=== PATIENT | male | born 1950 | race Hispanic/Latino ===

== ENCOUNTER 2022-12-03 19:29 | Inpatient (IN) | payer MEDICARE ==
[~2022-12-03] VITALS: Ht 170.2 cm; Wt 92.1 kg
[~2022-12-03 19:29] MED LIST: ACET-685 PO; ATOR10TA PO; DOXY100C5 PO; GLIM2TAB7 PO; GLYB5TAB3 PO; INSU100V SQ; INSU100V8 SQ; LEVO100T5 PO; LISI10TA20 PO; METF10007 PO; VANC1.5V3 IV
[2022-12-03 19:45] VITALS: BP 182/85; PULSE 105; RESP 20; TEMP 99.8; O2SAT 90
[2022-12-03] MEDS ORDERED: TORADOL IM STA (20:08)
[2022-12-03] MEDS ORDERED: TORADOL ONE (20:20)
--- NOTE | 2022-12-03 20:26 | ER.PDOC ---
General Chief Complaint: Trunk Pain/Injury Stated Complaint: POSSIBLE BROKE RIBS Time seen by MD: 20:22 Source: patient Exam Limitations: no limitations History of Present Illness Initial Comments Left-side rib fractures status post fall 6 days ago. Patient was admitted at [facility] but signed and left AGAINST MEDICAL ADVICE today because he was not happy with the nursing care. He is here because of pain. No cough. No fever or chills. Where: home Context: fall Location of pain/injury: chest Quality/Severity: severe Remembers: injury, coming to hospital Allergies: Coded Allergies: No Known Allergies (Unverified , 04/22/14) Home Meds Active Scripts Doxycycline Hyclate (DOXYCYCLINE HYCLATE) 100 Mg Capsule, 100 MG PO BID for 42 Days Prov:JULI OSEI MD 06/27/19 Acetaminophen With Codeine (TYLENOL WITH CODEINE #3 TABLET) 1 Each Tablet, 2 EACH PO Q6 PRN for PAIN, #30 Prov:JULI OSEI MD 06/27/19 Insulin Lispro (HUMALOG) 100 Unit/1 Ml Vial, 0 UNIT SQ ACHS for 30 Days, VIAL Prov:JULI OSEI MD 06/27/19 Insulin Glargine,Hum.rec.anlog (LANTUS) 100 Unit/1 Ml Vial, 10 UNIT SQ DAILY for 30 Days, VIAL Prov:JULI OSEI MD 06/27/19 Glyburide (GLYBURIDE) 5 Mg Tablet, 5 MG PO BIDAC for 30 Days, TAB Prov:JULI OSEI MD 06/27/19 Lisinopril (LISINOPRIL) 10 Mg Tablet, 10 MG PO DAILY for 30 Days, TAB Prov:JULI OSEI MD 06/27/19 Vancomycin HCl in Water (Vancomycin 1,500 mg/15Ml-Water) 1.5 Gram/15 Ml (100 Mg/Ml) Vial, 1.5 GM IV BID for 42 Days Prov:JULI OSEI MD 06/27/19 Reported Medications Levothyroxine Sodium (LEVOTHYROXINE SODIUM) 100 Mcg Tablet, 1 TAB PO DAILY, #30 TAB 5 Refills 04/22/14 Metformin Hcl (METFORMIN HCL) 1,000 Mg Tablet, 1 TAB PO DAILY, #60 TAB 5 Refills 04/22/14 Atorvastatin 10MG (LIPITOR 10MG) 10 Mg Tablet, 1 TAB PO HS, #90 TAB 1 Refill 04/22/14 Past Medical History Medical History: diabetes Family History Significant Family History: no pertinent family hx Social History Smoking: non-smoker Alcohol Use: none Drug Use: none Review of Systems Constitutional: no symptoms reported Respiratory: no symptoms reported Cardiovascular: see HPI Gastrointestinal: no symptoms reported Genitourinary: no symptoms reported Musculoskeletal: no symptoms reported All Other Systems: Reviewed and Negative Physical Exam General Appearance: No Apparent Distress, WD/WN Head: No Evidence of Injury Neck: Non-Tender Respiratory: normal breath sounds, no respiratory distress, chest non-tender, tenderness (Left chest wall) Cardiovascular/Chest: Normal Peripheral Pulses, Regular Rate, Rhythm, No Edema, No Gallop, No JVD, No Murmur, Tachycardia Gastrointestinal: Normal Bowel Sounds, No Organomegaly, No Pulsatile Mass, Non Tender, Soft Back: Normal Inspection, No CVA Tenderness, No Vertebral Tenderness Extremities: No Evidence of Injury, Normal Range of Motion, Non-Tender, No Pedal Edema Neurologic/Psychiatric: zipper setter chainstitch II-XII NML as Tested, No Motor/Sensory Deficits, Alert, Normal Mood/Affect, Oriented x 3 [place] Coma Score Best Eye Response: (4) Open Spontaneously Best Verbal Response: (5) Oriented Best Motor Response: (6) Obeys Commands Results/Orders Results/Orders Orders - SINDHU SMITH MD Xr Chest 1v (12/03/22 20:00) Ketorolac Tromethamine (Toradol) (12/03/22 20:08) Ketorolac Tromethamine (Toradol) (12/03/22 20:20) Cbc With Auto Diff (12/03/22 20:35) Comprehensive Metabolic Panel (12/03/22 20:35) PT (12/03/22 20:35) Partial Thromboplastin Time. (12/03/22 20:35) Lactic Acid(Ml) (12/03/22 20:35) Procalcitonin (12/03/22 20:35) Ct Chest Wo Iv Contrast (12/03/22 20:35) Arterial Blood Gas (12/03/22 20:35) Vital Signs Date Time Temp Pulse Resp B/P (MAP) Pulse Ox O2 Delivery O2 Flow Rate FiO2 12/03/22 21:45 84 20 141/69 (93) 96 Nasal Cannula* 2 28 12/03/22 21:09 20 94 Nasal Cannula* 2 28 12/03/22 20:45 85 20 166/74 (104) 92 Room Air* 0 21 12/03/22 19:45 99.8 105 20 90 12/03/22 19:45 99.8 105 20 12/03/22 19:45 99.8 105 20 182/85 (117) 90 Room Air* 0 21 Administered Medications Medications (Trade) Dose Ordered Sig/Patsy Route PRN Reason Start Time Stop Time Status Last Admin Dose Admin Ketorolac Tromethamine (Toradol) 30 mg STAT STAT IM 12/03/22 20:08 12/03/22 20:09 DC 12/03/22 20:27 30 MG Laboratory Tests Test 12/03/22 20:44 12/03/22 20:57 White Blood Count 4.5 10^3/uL (4.5-11.0) Red Blood Count 3.69 10^6/uL (4.50-5.90) L Hemoglobin 12.4 g/dL (13.9-16.3) L Hematocrit 35.9 % (37.0-53.0) L Mean Corpuscular Volume 97.3 fL (78-100) Mean Corpuscular Hemoglobin 33.6 pg (26-34) Mean Corpuscular Hemoglobin Concent 34.5 g/dL (33-36.5) Red Cell Distribution Width 12.7 % (11.5-14.5) Platelet Count 171 10^3/uL (150-400) Mean Platelet Volume 10.3 fL (7.8-11.0) Neutrophils (%) (Auto) 81.0 % (41.0-85.0) Lymphocytes (%) (Auto) 8.4 % (24.0-44.0) L Monocytes (%) (Auto) 9.5 % (5.0-12.0) Neutrophils # (Auto) 3.7 10^3/uL (1.8-7.7) Lymphocytes # (Auto) 0.38 10^3/uL1 (1.0-4.8) L Monocytes # (Auto) 0.4 10^3/uL (0.3-0.8) Absolute Immature Granulocyte (auto 0 10^3 u/L (0-2) Absolute Eosinophils (auto) 0.0 10^3/uL (0.0-0.2) Immature Granulocytes % 0.00 % (0.00-0.50) Eosinophils % 0.7 % (0.0-5.0) Basophils % 0.4 % (0.0-0.2) H Basophils # 0.0 10^3/uL (0.0-0.1) Prothrombin Time 9.8 SEC (9.7-11.6) INR 0.9 Activated Partial Thromboplast Time 27.0 SEC (22.5-33.1) Sodium Level 133 mmol/L (132-145) Potassium Level 4.3 mmol/L (3.6-5.2) Chloride Level 97.0 mmol/L (96-109) Carbon Dioxide Level 30.5 mmol/L (20.0-32) Anion Gap 9.8 Blood Urea Nitrogen 14 mg/dL (7-18) Creatinine 0.94 mg/dL (0.59-1.40) Estimated GFR () 96.0 (>/=60) Est GFR (CKD-EPI)(Non-Afr Afghan) 79.3 (>/=60) BUN/Creatinine Ratio 14.0 (10.0-20.0) Glucose Level 314 mg/dL (74-106) H Lactic Acid Level 1.0 mmol/L (0.5-1.9) Calcium Level 8.4 mg/dL (8.4-10.5) Total Bilirubin 0.8 mg/dL (0.2-1.0) Aspartate Amino Transferase (AST) 31 U/L (0-35) Alanine Aminotransferase (ALT) 50 U/L (12-78) Alkaline Phosphatase 91 U/L (50-136) Total Protein 6.7 g/dL (6.4-8.2) Albumin 3.3 g/dL (3.4-5.0) L Globulin 3.4 Albumin/Globulin Ratio 0.970 Procalcitonin 0.06 ng/mL (0.05-0.5) Blood Gas Sample Site RT RADIAL ARTERY Blood pH 7.481 (7.350-7.450) Blood Gas PCO2 32.3 mmHg (35.0-45.0) L Blood Gas PO2 54.6 mmHg (80.0-100.0) L Blood Gas HCO3 23.6 mmol/L (22.0-26.0) Blood Gas Base Excess 0.7 mmol/L (-2.0-2.0) Avi Test POSITIVE Arterial Blood Oxygen Saturation 88.5 % (94.0-97.00) L Deoxyhemoglobin 11.2 % (0.0-5.0) H Carboxyhemoglobin 1.7 % (0.0-3.9) Methemoglobin 0.5 % (0.00-5.0) Total Hemoglobin 12.7 % (12.0-17.8) Total Oxygen Concentration 15.5 % (13.5-17.5) Oxygen Delivery Method ROOM AIR FiO2 21 % (20-101) Total Carbon Dioxide 24.6 mmol/L (23-27) Progress Progress CT chest: Multiple posterior left rib fractures. No clear pneumothorax. 2. Small left and trace right pleural effusion with partial atelectasis of the left lower lobe and subsegmental atelectatic changes in the right lung. 3. Cholelithiasis. Pro-Kevyn 0.06, lactate 1.0, glucose 342, rest of chemistry is normal, CBC is unremarkable. ABG: pH 7.48, PCO2 32.3, PO2 54.6 giving oxygen saturation of 88.5 on FiO2 of 21. Patient received Toradol, Solu-Medrol and a breathing treatment I consulted Dr. Ho and he is agreeable for patient to be admitted ER DEPART Departure Time of Disposition: 21:59 Disposition: 09 ADMITTED INPATIENT Impression: Primary Impression: Acute respiratory failure with hypoxia Additional Impression: Multiple fractures of ribs of left side Qualified Codes: S22.42XA - Multiple fractures of ribs, left side, initial encounter for closed fracture Condition: Improved Referrals: MARIO ALBERTO ALCANTARA MD (PCP) PRIMARY CARE PROVIDER Comments Admitted to Dr. Ramirez Duration or Time Spent with Pa: 60 min Critical Care Note Total Time (mins): 60 SINDHU SMITH MD Dec 03, 2022 20:26
--- NOTE | 2022-12-03 20:28 | DIREP ---
PROCEDURE:CHEST 1 VIEW COMPARISON:[facility], CR, XRAY CHEST SINGLE VW, 06/27/2019, 10:48 AM. INDICATIONS:Pain S/P fracture of left ribs FINDINGS: LUNGS/PLEURA:Low lung volumes is strandy bibasilar subsegmental atelectatic changes, greater at the left lung base. VASCULATURE:Unremarkable. CARDIAC:Mildly enlarged cardiomediastinal silhouette. MEDIASTINUM:Unremarkable. BONES:Degenerative changes in the AC joints. Limited evaluation of the ribs due to overlapping structures and technique. OTHER:Negative. CONCLUSION: 1. Low lung volumes and bibasilar subsegmental atelectatic changes, with more confluent opacity at the left lung base. Difficult to exclude underlying pneumonia. 2. Limited evaluation of the ribs. Dictated by: Agustín Oconnell MD. On 12/03/2022 at 08:25 PM
[2022-12-03 20:45] VITALS: BP 166/74; PULSE 85; RESP 20; O2SAT 92
[2022-12-03 20:58] LABS: BASOPHIL % 0.4 % (0.0-0.2); EOSINOPHIL % 0.7 % (0.0-5.0); LYMPHOCYTES # 0.38 10^3/uL1 (1.0-4.8); LYMPHOCYTES % 8.4 % (24.0-44.0); MEAN CORP HGB 33.6 pg (26-34); MONOCYTES # 0.4 10^3/uL (0.3-0.8); MONOCYTES % 9.5 % (5.0-12.0); NEUTROPHIL # 3.7 10^3/uL (1.8-7.7); PLATELET COUNT 171 10^3/uL (150-400); RED CELL DISTRIBUTION WIDTH 12.7 % (11.5-14.5)
[2022-12-03 21:08] LABS: ABG PCO2 32.3 mmHg (35.0-45.0); ABG PH 7.481 (7.350-7.450); BE(B) 0.7 mmol/L (-2.0-2.0); HCO3act 23.6 mmol/L (22.0-26.0); pO2 54.6 mmHg (80.0-100.0)
[2022-12-03 21:09] VITALS: RESP 20; O2SAT 94
--- NOTE | 2022-12-03 21:09 | NUR ---
O2 ABG READING 88% ON RA PER CAREN RT. PATIENT CURRENTLY SATING 86% RA VIA PULSE OXIMETRY - O2 APPLIED AT 2 LPM VIA NC O2 95% - NOTIFIED EDP DR SMITH
[2022-12-03 21:18] LABS: CARBON DIOXIDE 30.5 mmol/L (20.0-32)
--- NOTE | 2022-12-03 21:43 | DIREP ---
PROCEDURE:CT CHEST W/O COMPARISON:[facility], CR, XRAY CHEST SINGLE VW, 06/27/2019, 10:48 AM. INDICATIONS:Left rib pain S/P fall 6 days ago TECHNIQUE:Helical sections through the chest were performed from the lung apices through the diaphragms without IV contrast. Sagittal and coronal reconstructions are obtained from source images. FINDINGS: LUNGS AND PLEURAL SPACES:Trace right and small left pleural effusion with adjacent atelectatic changes. No pneumothorax. CARDIAC:The heart is not enlarged. No pericardial effusion. MEDIASTINUM:Unremarkable. MARK:Unremarkable. AORTA:Minimal calcific atheromatous plaque. No aortic dilation. CHEST WALL:Normal. No mass or axillary adenopathy. LIMITED ABDOMEN:Normal. Limited images of the upper abdomen are unremarkable. BONES:Mildly displaced left posterior 4th, 5th, 6th, 7th rib fracture. Multilevel degenerative changes of the thoracic spine without an acute fracture or subluxation. OTHER:Mildly left elevated hemidiaphragm. Innumerable gallstones in the partially visualized gallbladder. CONCLUSION: 1. Multiple posterior left rib fractures. No clear pneumothorax. 2. Small left and trace right pleural effusion with partial atelectasis of the left lower lobe and subsegmental atelectatic changes in the right lung. 3. Cholelithiasis. Dictated by: Agustín Oconnell MD. On 12/03/2022 at 09:37 PM
[2022-12-03 21:45] VITALS: BP 141/69; PULSE 84; RESP 20; O2SAT 96
[2022-12-03] MEDS ORDERED: DUO 0.5-3(2.5) MG/3 ML IH ONE (21:59)
[2022-12-03] MEDS ORDERED: DECADRON ONE (21:59)
[2022-12-03 22:00] VITALS: PULSE 84; PULSE 87; RESP 20; O2SAT 95
[2022-12-03] MEDS ORDERED: DUO 0.5-3(2.5) MG/3 ML IH STA (22:01)
[2022-12-03] MEDS ORDERED: DECADRON IH STA (22:01)
[2022-12-03] MEDS ORDERED: SOLU-MEDROL IV STA (22:01)
[2022-12-03] MEDS ORDERED: PIOG15TA66 PO (22:04)
[2022-12-03] MEDS ORDERED: DECADRON IH ONE (22:04)
[2022-12-03] MEDS ORDERED: GLYB5TAB3 PO (22:04)
[2022-12-03] MEDS ORDERED: SOLU-MEDROL ONE (22:08)
[2022-12-04] VITALS (14 sets, daily range): BP systolic 150–170; BP diastolic 63–74; PULSE 75–95; RESP 18–20; TEMP 97.5–98.3; O2SAT 90–96
--- NOTE | 2022-12-04 | NUR ---
BEDSIDE REPORT RECEIVED FROM ASTIRD MADRID AT THIS TIME.
--- NOTE | 2022-12-04 03:57 | PRM.CONS ---
Consultation History of Present Illness History of Patient Comments I saw patient on December 03, 2022. Patient is a 72-year-old male that presents to the emergency department because of left-sided flank pain. Symptoms started 6 days ago at home. Patient states that he picked up laundry and fell backwards landing directly on the left flank. Patient was transferred to a hospital in [facility] because of multiple fractures of the left side of his ribs. States that he was treated rudely and requested discharge, AMA. Patient re- presents to this facility because of worsening left flank pain provoked by breathing. In the emergency room patient was found to be hypoxic. There is concern that patient was not inhaling deeply. CT angios of the chest shows no PE or pulmonary contusion. No pneumothorax. I saw patient the bedside. Stable on 2 L nasal cannula. I saw patient at 12/03/2022. VTE VTE Risk Total Score: 2 VTE Risk Score VTE Risk: Score 0-1 = Low Risk (Aggressive mobilization; early ambulation; no VTE prophylaxis required) Score 2: Moderate Risk (Intermittent/Pneumatic Compression Device OR Lovenox/Heparin/Coumadin) Score 3-4: High Risk (Intermittent/Pneumatic Compression Device AND Lovenox/Heparin/Coumadin) Score > or =5: Highest Risk (Intermittent/Pneumatic Compression Device AND Lovenox/Heparin/Coumadin) Antico:Hep/LMWH/Coum/Xarelto: No Mechanical device ordered: No VTE VTE Present on Admission: No Currently receiving anticoagul: No VTE Risk Total Score: 2 Antico:Hep/LMWH/Coum/Xarelto: No Mechanical device ordered: No VTE VTE Risk Total Score: 2 On anticoag and warfarin: No SANDHYA SAUL MD Dec 04, 2022 03:57
[2022-12-04] MEDS ORDERED: TYLENOL PO PRN (04:00)
[2022-12-04] MEDS ORDERED: VENTOLIN INH PRN (04:00)
[2022-12-04] MEDS ORDERED: DEXTROSE 50%-WATER SYRINGE IV PRN (04:30)
[2022-12-04] MEDS ORDERED: SOLU-MEDROL IV SCH (06:00)
--- NOTE | 2022-12-04 06:40 | NUR ---
BEDSIDE REPORT RECEIVED BEDSIDE REPORT FROM [facility].
[2022-12-04] MEDS: HUMULIN R SQ SCH ×4 (07:28→20:40)
[2022-12-04] MEDS: ASPIRIN EC PO SCH (08:38)
[2022-12-04] MEDS: LOVENOX SQ SCH (08:38)
[2022-12-04] MEDS ORDERED: SYNTHROID PO SCH (09:00)
[2022-12-04] MEDS ORDERED: PROTONIX PO SCH (09:30)
[2022-12-04] MEDS ORDERED: TYLENOL PO SCH (09:30)
[2022-12-04] MEDS ORDERED: TYLENOL PO ONE (09:34)
[2022-12-04] MEDS: DUO 0.5-3(2.5) MG/3 ML IH SCH ×3 (10:06→20:47)
--- NOTE | 2022-12-04 11:41 | PCM.HP ---
History of Present Illness Reason for Visit: Left-sided back pain and chest pain. History of Present Illness 72-year-old maleWith past medical history of diabetes mellitus, hypothyroidism, hypertension, among others that presents to the emergency department because of left-sided flank pain. Symptoms started 6 days ago at home. Patient states that he picked up laundry and fell backwards landing directly on the left flank. Patient was transferred to a hospital in [facility] because of multiple fractures of the left side of his ribs. States that he was treated rudely and requested discharge, AMA. Patient re-presents to this facility because of worsening left flank pain provoked by breathing. In the emergency room patient was found to be hypoxic. There is concern that patient was not inhaling deeply. CT angios of the chest shows no PE or pulmonary contusion. No pneumothorax.. Patient was found to have 4 rib fractures. Patient was found to be hypoxic. Placed on supplemental oxygen. Patient is being admitted hospital for further management... Past Medical History Cardiac: HTN Endocrine: Diabetes, Hypothyroidism Past Surgical History: No pertinent hx Past Social History Smoke: No Alcohol: none Drugs: None Travel Hx EBOLA RISK:Travel to/contact w: No Review of Systems Respiratory: Shortness of breath Cardiovascular: Chest Pain Gastrointestinal: No: Nausea Musculoskeletal: foot pain Neurological: Weakness Allergies: Coded Allergies: No Known Allergies (Unverified , 04/22/14) Scheduled Glyburide (Glyburide), 5 MG PO DAILY24 Levothyroxine Sodium (Levothyroxine Sodium), 1 TAB PO DAILY, (Reported) Metformin Hcl (Metformin Hcl), 1 TAB PO DAILY, (Reported) Pioglitazone Hcl (Pioglitazone Hcl), 1 TAB PO DAILY24, (Reported) Discontinued Medications Acetaminophen With Codeine (Tylenol With Codeine #3 Tablet), 2 EACH PO Q6 PRN for PAIN Discontinued Reason: No Longer Taking Atorvastatin 10MG (Lipitor 10MG), 1 TAB PO HS, (Reported) Discontinued Reason: No Longer Taking Doxycycline Hyclate (Doxycycline Hyclate), 100 MG PO BID Discontinued Reason: No Longer Taking Insulin Glargine,Hum.rec.anlog (Lantus), 10 UNIT SQ DAILY Discontinued Reason: No Longer Taking Insulin Lispro (Humalog), 0 UNIT SQ ACHS Discontinued Reason: No Longer Taking Lisinopril (Lisinopril), 10 MG PO DAILY Discontinued Reason: HOLD Vancomycin HCl in Water (Vancomycin 1,500 mg/15Ml-Water), 1.5 GM IV BID Discontinued Reason: No Longer Taking Exam Vital Signs Vital Signs Date Time Temp Pulse Resp B/P (MAP) Pulse Ox O2 Delivery O2 Flow Rate FiO2 12/04/22 10:08 78 18 92 Nasal Cannula* 3 32 12/04/22 07:00 97.7 155/71 (99) General Appearance: Alert, Oriented X3, moderate distress HEENT: Atraumatic, PERRLA Respiratory: Clear to auscultation, Other (Diminished air entry. Basis. Chest wall tenderness) Cardiovascular: Regular rate, Normal S1, Normal S2 Abdominal: Normal bowel sounds, Soft, No tenderness Extremities: No clubbing, No cyanosis, Other (Chest wall tenderness) Skin: No lesions Neuro: Normal speech, Normal tone Psych/Mental Status: Mood NL Assessment/Plan Assessment/Plan Assessment/Plan 72-year-old maleWith past medical history of diabetes mellitus, hypothyroidism, hypertension, among others that presents to the emergency department because of left-sided flank pain. Symptoms started 6 days ago at home. Patient states that he picked up laundry and fell backwards landing directly on the left flank. Patient was transferred to a hospital in [facility] because of multiple fractures of the left side of his ribs. States that he was treated rudely and requested discharge, AMA. Patient re-presents to this facility because of worsening left flank pain provoked by breathing. In the emergency room patient was found to be hypoxic. There is concern that patient was not inhaling deeply. CT angios of the chest shows no PE or pulmonary contusion. No pneumothorax.. Patient was found to have 4 rib fractures. Patient was found to be hypoxic. Placed on supplemental oxygen. Patient is being admitted hospital for further management... Plan Admit Oxygen keep saturation more than 92% Incentive spirometer Surgeon consulted for evaluation and recommendation Pain management with close monitoring of vital signs and pulse ox Bronchodilators as needed SSI Reconcile home med DVT prophylaxis as appropriate Expect length of stay more than 1 midnight Time spent examining the patient, reviewing labs, images, discussing the case with patient, surgeon, RN, documentation and placing orders more than 75 Problems: (1) Acute respiratory failure with hypoxia ICD Code: J96.01 - Acute respiratory failure with hypoxia SNOMED: 01848977, 074212522 (2) Atelectasis ICD Code: J98.11 - Atelectasis SNOMED: 29266191 (3) Multiple fractures of ribs ICD Code: S22.49XA - Multiple fractures of ribs, unspecified side, initial encounter for closed fracture SNOMED: 6238513 (4) Hypertension ICD Code: I10 - Essential (primary) hypertension SNOMED: 07056924 (5) Diabetes mellitus ICD Code: E11.9 - Type 2 diabetes mellitus without complications SNOMED: 74233802 Patient History: Diabetes mellitus G8 BROTHER G8 SISTER G8 SISTER KEVIN NELSON MD Dec 04, 2022 11:41
--- NOTE | 2022-12-04 11:48 | NUR ---
DECLINED TO BE NOTIFIED OF LAB RESULTS FOR GLUCOSE.
--- NOTE | 2022-12-04 11:55 | NUR ---
CM, DISCHARGE CM VISITED WITH PATIENT REGARDING DISCHARGE PLAN AND NEED, PATIENT LIVES AT HOME ALONE. VERIFIED PATIENT LIVES IN [facility]. IS INDEPENDENT WITH ADLS/CARE. EDUCATED ON HOME HEALTH SERVICES, PATIENT DENIES NEED. GOLA IS TO RETURN HOME ALONE FOR ROUTINE SELF CARE. CM WILL CONTINUE TO FOLLOW FOR DISCHARGE NEEDS.
[2022-12-04 12:11] LABS: LYMPHOCYTES # 0.14 10^3/uL1 (1.0-4.8); LYMPHOCYTES % 2.3 % (24.0-44.0); MEAN CORP HGB 32.9 pg (26-34); MONOCYTES # 0.1 10^3/uL (0.3-0.8); MONOCYTES % 1.8 % (5.0-12.0); NEUTROPHIL # 5.9 10^3/uL (1.8-7.7); NEUTROPHILS % 95.9 % (41.0-85.0); RED CELL DISTRIBUTION WIDTH 12.1 % (11.5-14.5)
[2022-12-04] MEDS: LANTUS SQ SCH (12:38)
[2022-12-04] MEDS: TYLENOL PO SCH ×3 (14:00→21:23)
[2022-12-04] MEDS: MOTRIN PO SCH ×3 (14:02→21:00)
[2022-12-04] MEDS: MORPHINE SULFATE IV PRN (14:21)
[2022-12-04] MEDS ORDERED: MORPHINE SULFATE ONE (14:21)
--- NOTE | 2022-12-04 14:28 | NUR ---
RT TO INSTRUCT PAT ON DIAPHRAMATIC BREATHING TO AID IN DEEP BREATHING SINCE FRACTURING HIS RIBS; PAT RESPONSIVE AND DEMONSTRATED BREATHING POST INSTRUCTION; PAT ALSO ABLE TO DO INCENTIVE SPIROMETRY WELL - ABLE TO ACHIEVE 2500ML WITH GOOD FORM
[2022-12-04] MEDS ORDERED: SENSORCAINE-MPF 0.25% VIAL ONE (14:39)
[2022-12-04] MEDS ORDERED: EXPAREL 266 MG/20 ML VIAL IJ ONE (14:39)
[2022-12-04] MEDS ORDERED: HUMALOG SQ ONE ×2 (15:00→16:00)
--- NOTE | 2022-12-04 15:17 | PRM.OPH ---
Lumbar Interclaminar ROWAN Note Pre-Operative DX: fall/ rib pain Post-OP DX: same Actual Procedure Performed: ignacio nerve block Indications: Patient is admitted recently seeking a thoracic IGNACIO injection in hopes of therapeutic benefit. The risks, alternatives, and complications including but not limited to bleeding, bruising, infection, failure to relieve pain, increase in pain, nerve injury, and allergic reaction were explained to the patient. The record of the patients past medical, surgical, current medications, allergies, and review of systems, family and social histories, as well as pain assessment have been obtained. DATE: Dec 04, 2022 Start Time of Procedure: 15:00 Procedure Finish Time: 15:12 Referring PCP: Aneudy Ho Descriptor of Procedure The patient was interviewed, questions were addressed, informed consent was obtained and the patient was placed in a seated position in his bedside chair. Vitals verified and documented by nurse. A Chloraprep prep was used for clensing. Sterile technique was maintained at all times. 15ml exparel mixed with 0.25% bupivacaine was injected in 5ml increments under direct ultrasonography. The patient tolerated the procedure well and remained stable througout Assessment & Plan The patient was monitored post-procedure pain levels improving [2 /10]. The patient denies any sensory or motor deficits. No anesthetic complications were noted. The therapeutic effects of the local are expected to have onset one to three days post procedure. Discharge instructions were provided. Follow-up Appt KATARINA HEWITT CRNA Dec 04, 2022 15:17
--- NOTE | 2022-12-04 15:48 | NUR ---
GLUCOSE DR. NELSON NOTIFIED OF FSBS OF 476. RECEIVED ORDERS FOR OT DOSE OF HUMALOG, AND NS BOLUS, SEE EMR. ALSO RECEIVED ORDERS TO RECHECK FSBS 2 HOURS AFTER HUMALOG HAS BEEN ADMINISTERED, NO NEED FOR LAB DRAW. Addendum: 12/04/22 at 1604 by GARCIA Rahman RN Amended: Links added.
[2022-12-04] MEDS ORDERED: NS 500ML 500 ML IV ONE (15:53)
[2022-12-04] MEDS ORDERED: NS 500ML IV ONE (16:00)
--- NOTE | 2022-12-04 16:44 | NUR ---
NOTIFIED DR BROWN OF BP 170/74, RECEIVED NO NEW ORDERS
--- NOTE | 2022-12-04 22:59 | CNH ---
DICTATOR NAME: Telly HoDO CHIEF COMPLAINT: Rib fractures. HISTORY OF PRESENT ILLNESS: This is a 72-year-old male who apparently came home from work on Thursday, 5 days ago. He reports to me that he bent over to potato picker some laundry and fell and injured himself. He was unsure if his blood sugar was low at that time or if it was related to dehydration from working. He apparently ended up having multiple rib fractures and went to a facility out of our community where he was treated as an inpatient, but there were some problems with his care and he left AMA. He presented earlier last night with back pain and shortness of breath. He is more than 5 days from his injury. At the time of my assessment in his room this morning, he is alert, pleasant, and oriented. He reports he does have mid back pain. He is very pleasant and cooperative. I have discussed with him the findings of a CT scan and the importance of utilizing his incentive spirometer to prevent further worsening of his pulmonary status and also to help improve his atelectasis and decrease his risk for further pneumonia. The patient is very pleasant with my evaluation. He expresses understanding regarding the descriptions I gave him. PAST MEDICAL HISTORY: Includes diabetes and hypertension. Previously had hepatitis C, for which he was treated. His oral mucous membranes are pink and moist. PAST SURGICAL HISTORY: Includes a hernia repair. ALLERGIES: No known drug allergies. HOME MEDICATIONS: Per list. INPATIENT MEDICATIONS: Per JUL. Of note, his PCP is reported to be Ingrid Umana. SOCIAL HISTORY: He denies tobacco. He reports he has an alcohol for more than 36 years. He denies illicit drug use. OCCUPATION: The patient works as a welder/installer and knows he has had significant occupational exposures for the last 50 years. FAMILY HISTORY: Essentially noncontributory to this evaluation. REVIEW OF SYSTEMS. CONSTITUTIONAL: No fever, chills or weakness. ENDOCRINE: He has known diabetes. He does not report thyroid disease to me. CARDIOVASCULAR: No chest pain. He does have some trouble breathing associated with rib fractures. PULMONARY: Again, changes consistent with rib fractures, he does not report a cough. ABDOMEN: No nausea, vomiting, abdominal pain. MUSCULOSKELETAL: He has pain associated with rib fractures. NEUROLOGIC: He has no recent reported symptoms. PHYSICAL EXAMINATION: GENERAL: This is an alert, oriented, appropriate 72-year-old male in no acute distress at the time of my assessment. VITAL SIGNS: His last recorded vital signs show temperature 97.7, pulse 75, respiratory rate of 18, blood pressure 155/71. HEENT: Normocephalic, atraumatic. He has some scleral icterus. NECK: Supple and soft. Trachea is midline. He has no JVD. HEART: Has a regular rate and rhythm. LUNGS: Clear to auscultation anteriorly and both the bases laterally. ABDOMEN: The bowel sounds are positive and soft. He has no tenderness on exam. EXTREMITIES: Show positive radial pulses bilaterally, positive dorsal pedal pulse bilaterally. NEUROLOGIC: He has no focal findings. Cranial nerves 2-12 are grossly intact. LABORATORY STUDIES: On admission, his white count is 4.5, hemoglobin 12.4, platelet count 171. He had a blood gas last night that showed pH 7.48, pCO2 of 32.3. His pO2 is 54.6. Chemistry showed BUN 14, creatinine 0.9, total bilirubin 0.8. AST, ALT are within normal limits. His albumin is low at 3.3. His coagulation studies are normal. He has had a chest x-ray that did not have any significant findings. Chest CT shows rib fractures on the left with associated atelectasis and possible early consolidation. SURGICAL ASSESSMENTS: * Left-sided rib fractures as described in the CT report. * History of fall more than 48 hours past injury. * History of diabetes. * History of hypertension. * Sequela of rib fractures. PLAN: The patient was seen and examined. The chart was reviewed. I have explained to the patient the importance of us optimizing his pain management, so he can utilize his incentive spirometer. I have also advised the patient the importance of getting up into a chair to eat his meals and to ambulate as tolerated. He expresses understanding with this plan. I have discussed this patient's care briefly with the anesthesia service. I believe today they will come by and provide him with the supraspinatus block, which should help to localize his pain control and optimize our ability to manage him. The patient reports to me with his known history he tries to avoid Tylenol and ibuprofen, but I explained to him the importance of optimizing his pain control as here and he expresses some understanding. Alejandro Rodriguez. Telly Ho D.O., DR: JOSEPH/AMY TID: [id number] RECEIPT: [id number]
[2022-12-05] VITALS (15 sets, daily range): BP systolic 115–149; BP diastolic 45–82; PULSE 71–96; RESP 16–18; TEMP 97.2–98.5; O2SAT 90–98
[2022-12-05] MEDS: DUO 0.5-3(2.5) MG/3 ML IH SCH ×4 (02:42→20:53)
[2022-12-05] MEDS ORDERED: MORPHINE SULFATE ONE ×3 (05:03→19:40)
[2022-12-05] MEDS: MORPHINE SULFATE IV PRN ×3 (05:04→19:44)
[2022-12-05 05:27] LABS: BASOPHIL % 0.1 % (0.0-0.2); EOSINOPHIL % 0.3 % (0.0-5.0); LYMPHOCYTES # 0.55 10^3/uL1 (1.0-4.8); LYMPHOCYTES % 7.4 % (24.0-44.0); MEAN CORP HGB 32.7 pg (26-34); MONOCYTES # 0.6 10^3/uL (0.3-0.8); MONOCYTES % 7.4 % (5.0-12.0); NEUTROPHIL # 6.3 10^3/uL (1.8-7.7); NEUTROPHILS % 84.7 % (41.0-85.0); PLATELET COUNT 195 10^3/uL (150-400); RED CELL DISTRIBUTION WIDTH 12.4 % (11.5-14.5)
[2022-12-05 05:51] LABS: CARBON DIOXIDE 29.7 mmol/L (20.0-32)
[2022-12-05] MEDS: TYLENOL PO SCH ×3 (06:00→21:40)
[2022-12-05] MEDS: SYNTHROID PO SCH (06:28)
--- NOTE | 2022-12-05 06:30 | NUR ---
RECEIVED BEDSIDE REPORT FROM CHIKIS MADRID, ASSUMED CARE
[2022-12-05] MEDS: HUMULIN R SQ SCH ×4 (09:13→20:06)
[2022-12-05] MEDS: LANTUS SQ SCH (09:14)
[2022-12-05] MEDS: MOTRIN PO SCH ×3 (09:15→20:18)
[2022-12-05] MEDS: LOVENOX SQ SCH (09:15)
[2022-12-05] MEDS: ASPIRIN EC PO SCH (09:16)
[2022-12-05] MEDS: PROTONIX PO SCH ×2 (09:16→20:18)
--- NOTE | 2022-12-05 10:34 | PRM.PN ---
Subjective Subjective Date: Dec 05, 2022 Time: 09:00 Subjective Patient continues to complain of significant pain especially with any minimal exertion. Remains on supplemental oxygen. Patient uses incentive spirometry.Case discussed with surgeon, Dr. Ho. Patient will keep today for more close monitoring, pain management. Will reassess in a.m. He may require oxygen at home. Patient History: Diabetes mellitus G8 BROTHER G8 SISTER G8 SISTER Review of Systems Respiratory: Shortness of breath Cardiovascular: Chest Pain Gastrointestinal: No: Nausea Musculoskeletal: foot pain Neurological: Weakness Allergies: Coded Allergies: No Known Allergies (Unverified , 04/22/14) Scheduled Glyburide (Glyburide), 5 MG PO DAILY24 Levothyroxine Sodium (Levothyroxine Sodium), 1 TAB PO DAILY, (Reported) Metformin Hcl (Metformin Hcl), 1 TAB PO DAILY, (Reported) Pioglitazone Hcl (Pioglitazone Hcl), 1 TAB PO DAILY24, (Reported) Discontinued Medications Acetaminophen With Codeine (Tylenol With Codeine #3 Tablet), 2 EACH PO Q6 PRN for PAIN Discontinued Reason: No Longer Taking Atorvastatin 10MG (Lipitor 10MG), 1 TAB PO HS, (Reported) Discontinued Reason: No Longer Taking Doxycycline Hyclate (Doxycycline Hyclate), 100 MG PO BID Discontinued Reason: No Longer Taking Insulin Glargine,Hum.rec.anlog (Lantus), 10 UNIT SQ DAILY Discontinued Reason: No Longer Taking Insulin Lispro (Humalog), 0 UNIT SQ ACHS Discontinued Reason: No Longer Taking Lisinopril (Lisinopril), 10 MG PO DAILY Discontinued Reason: HOLD Vancomycin HCl in Water (Vancomycin 1,500 mg/15Ml-Water), 1.5 GM IV BID Discontinued Reason: No Longer Taking Objective Vitals and I/O Vital Sign - Last 24 Hours 12/04/22 12/04/22 12/04/22 12/04/22 11:00 14:25 14:25 16:00 Temp 97.7 97.5 Pulse 95 92 90 91 Resp 18 18 18 19 B/P (MAP) 151/70 (97) 170/74 (106) Pulse Ox 91 92 91 90 O2 Delivery Nasal Cannula* Room Air* Room Air* Nasal Cannula* O2 Flow Rate 2 0 0 2 FiO2 28 21 21 28 12/04/22 12/04/22 12/04/22 12/04/22 19:47 20:00 20:49 20:49 Temp 98.3 Pulse 92 81 81 Resp 19 18 18 B/P (MAP) 150/70 (96) Pulse Ox 96 94 94 O2 Delivery Nasal Cannula* Nasal Cannula Nasal Cannula* Nasal Cannula* O2 Flow Rate 2 2.00 2 2 FiO2 12/04/22 12/04/22 12/05/22 12/05/22 21:03 21:15 00:23 02:42 Temp 98.5 Pulse 81 91 90 Resp 18 18 18 B/P (MAP) 132/66 (88) Pulse Ox 94 90 90 O2 Delivery Nasal Cannula* Nasal Cannula Nasal Cannula* Room Air* O2 Flow Rate 2 2.00 2 0 FiO2 12/05/22 12/05/22 12/05/22 12/05/22 02:56 04:11 08:14 08:17 Temp 97.6 97.9 Pulse 90 93 90 Resp 18 18 18 B/P (MAP) 145/67 (93) 149/75 (99) Pulse Ox 90 90 93 O2 Delivery Room Air* Nasal Cannula* Nasal Cannula Nasal Cannula* O2 Flow Rate 0 2 2.00 2 FiO2 12/05/22 12/05/22 12/05/22 09:45 09:46 09:47 Pulse 84 84 82 Resp 18 18 18 Pulse Ox 93 93 94 O2 Delivery Nasal Cannula* Nasal Cannula* Nasal Cannula* O2 Flow Rate 2 2 2 FiO2 Intake and Output 12/05/22 07:00 Intake Total 1530 ml Balance 1530 ml General: Alert, Oriented X3, moderate distress HEENT: Atraumatic, PERRLA Lungs: Clear to auscultation, Other (Diminished air entry. Basis. Chest wall tenderness) Heart: Regular rate, Normal S1, Normal S2 Abdomen: Normal bowel sounds, Soft, No tenderness Extremities: No clubbing, No cyanosis, Other (Chest wall tenderness) Neuro: Normal speech, Normal tone Psych/Mental Status: Mood NL All Results(Lab/Rad) Laboratory Tests Test 12/04/22 12:02 12/04/22 15:04 12/04/22 18:05 12/04/22 20:31 White Blood Count 6.1 10^3/uL Red Blood Count 3.71 10^6/uL Hemoglobin 12.2 g/dL Hematocrit 35.5 % Mean Corpuscular Volume 95.7 fL Mean Corpuscular Hemoglobin 32.9 pg Mean Corpuscular Hemoglobin Concent 34.4 g/dL Red Cell Distribution Width 12.1 % Platelet Count 185 10^3/uL Mean Platelet Volume 10.3 fL Neutrophils (%) (Auto) 95.9 % Lymphocytes (%) (Auto) 2.3 % Monocytes (%) (Auto) 1.8 % Neutrophils # (Auto) 5.9 10^3/uL Lymphocytes # (Auto) 0.14 10^3/uL1 Monocytes # (Auto) 0.1 10^3/uL Absolute Immature Granulocyte (auto 0 10^3 u/L Absolute Eosinophils (auto) 0.0 10^3/uL Immature Granulocytes % 0.00 % Eosinophils % 0.0 % Basophils % 0.0 % Basophils # 0.0 10^3/uL Glucose Level 529 mg/dL 535 mg/dL 427 mg/dL Bedside Glucose 311 Test 12/05/22 04:27 12/05/22 09:08 White Blood Count 7.4 10^3/uL Red Blood Count 3.30 10^6/uL Hemoglobin 10.8 g/dL Hematocrit 31.8 % Mean Corpuscular Volume 96.4 fL Mean Corpuscular Hemoglobin 32.7 pg Mean Corpuscular Hemoglobin Concent 34.0 g/dL Red Cell Distribution Width 12.4 % Platelet Count 195 10^3/uL Mean Platelet Volume 10.8 fL Neutrophils (%) (Auto) 84.7 % Lymphocytes (%) (Auto) 7.4 % Monocytes (%) (Auto) 7.4 % Neutrophils # (Auto) 6.3 10^3/uL Lymphocytes # (Auto) 0.55 10^3/uL1 Monocytes # (Auto) 0.6 10^3/uL Absolute Immature Granulocyte (auto 0.01 10^3 u/L Absolute Eosinophils (auto) 0.0 10^3/uL Immature Granulocytes % 0.10 % Eosinophils % 0.3 % Basophils % 0.1 % Basophils # 0.0 10^3/uL Sodium Level 137 mmol/L Potassium Level 3.5 mmol/L Chloride Level 101.0 mmol/L Carbon Dioxide Level 29.7 mmol/L Glucose Level 153 mg/dL Blood Urea Nitrogen 26 mg/dL Creatinine 0.86 mg/dL Calcium Level 9.0 mg/dL Anion Gap 9.8 Estimated GFR () 106.4 Est GFR (CKD-EPI)(Non-Afr Uzbek) 87.9 BUN/Creatinine Ratio 30.0 Hemoglobin A1c 9.6 % Bedside Glucose 169 Current Medications Medications (Trade) Dose Ordered Sig/Patsy Route PRN Reason Start Time Stop Time Status Last Admin Dose Admin Ketorolac Tromethamine (Toradol) 30 mg STAT STAT IM 12/03/22 20:08 12/03/22 20:09 DC 12/03/22 20:27 Ketorolac Tromethamine (Toradol) 30 mg STK-MED ONCE .ROUTE 12/03/22 20:20 12/03/22 20:20 DC Albuterol/ Ipratropium (Duo 0.5-3(2.5) Mg/3 ml) 3 ml STK-MED ONCE IH 12/03/22 21:59 12/03/22 21:59 DC Albuterol/ Ipratropium (Duo 0.5-3(2.5) Mg/3 ml) 3 ml STAT STAT IH 12/03/22 22:01 12/03/22 22:03 DC 12/03/22 22:04 Methylprednisolone Sodium Succinate (Solu-Medrol) 125 mg STAT STAT IV 12/03/22 22:01 12/03/22 22:03 DC 12/03/22 22:12 Methylprednisolone Sodium Succinate (Solu-Medrol) 125 mg STK-MED ONCE .ROUTE 12/03/22 22:08 12/03/22 22:08 DC Aspirin (Aspirin Ec) 81 mg DAILY PO 12/04/22 09:00 01/03/23 08:59 12/05/22 09:16 Acetaminophen (Tylenol) 1,000 mg Q6H PRN PO PAIN 1 - 3 12/04/22 04:00 12/04/22 09:30 DC Morphine Sulfate (Morphine Sulfate) 2 mg Q4H PRN IV PAIN 4 - 6 12/04/22 04:00 01/03/23 03:59 12/05/22 05:04 Enoxaparin Sodium (Lovenox) 40 mg DAILY SQ 12/04/22 09:00 01/03/23 08:59 12/05/22 09:15 Methylprednisolone Sodium Succinate (Solu-Medrol) 40 mg Q8HR IV 12/04/22 06:00 12/04/22 11:35 DC 12/04/22 05:57 Albuterol/ Ipratropium (Duo 0.5-3(2.5) Mg/3 ml) 3 ml RTQ6 IH 12/04/22 09:00 01/03/23 08:59 12/05/22 09:45 Albuterol Sulfate (Ventolin) 2.5 mg Q2HR PRN INH SHORTNESS OF BREATH 12/04/22 04:00 01/03/23 03:59 Levothyroxine Sodium (Synthroid) 100 mcg DAILY PO 12/04/22 09:00 12/04/22 14:30 DC 12/04/22 08:38 Insulin Human Regular (Humulin R) Give 30 minutes before meal ACHS SQ 12/04/22 07:30 01/03/23 07:29 12/05/22 09:13 Dextrose (Dextrose 50%-Water Syringe) 25 ml STAT PRN IV HYPOGLYCEMIA 12/04/22 04:30 01/03/23 04:29 Acetaminophen (Tylenol) 650 mg Q8 PO 12/04/22 09:30 12/04/22 09:38 DC Ibuprofen (Motrin) 400 mg TID PO 12/04/22 15:00 01/03/23 14:59 12/05/22 09:15 Pantoprazole Sodium (Protonix) 40 mg DAILY PO 12/04/22 09:30 12/05/22 08:57 DC 12/04/22 09:35 Acetaminophen (Tylenol) 650 mg Q8 PO 12/04/22 14:00 01/03/23 13:59 Acetaminophen (Tylenol) 500 mg STK-MED ONCE PO 12/04/22 09:34 12/04/22 09:38 DC Insulin Glargine (Lantus) 25 unit DAILY SQ 12/05/22 12:00 12/04/22 12:33 DC Insulin Glargine (Lantus) 25 unit DAILY SQ 12/04/22 12:00 01/03/23 11:59 12/05/22 09:14 Morphine Sulfate (Morphine Sulfate) 2 mg STK-MED ONCE .ROUTE 12/04/22 14:21 12/04/22 14:21 DC Levothyroxine Sodium (Synthroid) 100 mcg ACB PO 12/05/22 06:30 01/04/23 06:29 12/05/22 06:28 Bupivacaine HCl (Sensorcaine-Mpf 0.25% Vial) 2.5 mg STK-MED ONCE .ROUTE 12/04/22 14:39 12/04/22 14:39 DC Insulin Human Lispro (Humalog) 18 unit OT ONCE SQ 12/04/22 15:00 12/04/22 15:17 DC 12/04/22 14:47 Sodium Chloride (NS 500ml) 500 ml OT ONCE IV 12/04/22 16:00 12/04/22 16:01 DC 12/04/22 15:55 Insulin Human Lispro (Humalog) 12 unit OT ONCE SQ 12/04/22 16:00 12/04/22 16:01 DC 12/04/22 15:55 Sodium Chloride 500 ml @ ud STK-MED ONCE IV 12/04/22 15:53 12/04/22 15:53 DC Morphine Sulfate (Morphine Sulfate) 2 mg STK-MED ONCE .ROUTE 12/05/22 05:03 12/05/22 05:03 DC Pantoprazole Sodium (Protonix) 40 mg BID PO 12/05/22 09:00 01/03/23 09:29 12/05/22 09:16 Assessment/Plan Assessment/Plan Assessment/Plan 72-year-old maleWith past medical history of diabetes mellitus, hypothyroidism, hypertension, among others that presents to the emergency department because of left-sided flank pain. Symptoms started 6 days ago at home. Patient states that he picked up laundry and fell backwards landing directly on the left flank. Patient was transferred to a hospital in [facility] because of multiple fractures of the left side of his ribs. States that he was treated rudely and requested discharge, AMA. Patient re-presents to this facility because of worsening left flank pain provoked by breathing. In the emergency room patient was found to be hypoxic. There is concern that patient was not inhaling deeply. CT angios of the chest shows no PE or pulmonary contusion. No pneumothorax.. Patient was found to have 4 rib fractures. Patient was found to be hypoxic. Placed on supplemental oxygen. Patient is being admitted hospital for further management... Plan Admit Oxygen keep saturation more than 92% Incentive spirometer Surgeon consulted for evaluation and recommendation Pain management with close monitoring of vital signs and pulse ox Bronchodilators as needed SSI Reconcile home med DVT prophylaxis as appropriate Expect length of stay more than 1 midnight Time spent examining the patient, reviewing labs, images, discussing the case with patient, surgeon, RN, documentation and placing orders more than 75 12/05/2022 Patient continues to complain of significant pain especially with any minimal exertion. Remains on supplemental oxygen. Patient uses incentive spirometry.Case discussed with surgeon, Dr. Ho. Patient will keep today for more close monitoring, pain management. Will reassess in a.m. He may require oxygen at home. Problems: (1) Acute respiratory failure with hypoxia ICD Code: J96.01 - Acute respiratory failure with hypoxia SNOMED: 70736610, 708183945 (2) Multiple fractures of ribs ICD Code: S22.49XA - Multiple fractures of ribs, unspecified side, initial encounter for closed fracture SNOMED: 8951414 (3) Hypertension ICD Code: I10 - Essential (primary) hypertension SNOMED: 64328650 (4) Atelectasis ICD Code: J98.11 - Atelectasis SNOMED: 92332787 (5) Diabetes mellitus ICD Code: E11.9 - Type 2 diabetes mellitus without complications SNOMED: 78952141 KEVIN NELSON MD Dec 05, 2022 10:34
--- NOTE | 2022-12-05 10:37 | NUR ---
morphine 2mg iv given for pain 10/18
--- NOTE | 2022-12-05 11:40 | NUR ---
CM, DISCHARGE CM FOLLOWED UP VISITED WITH PATIENT REGARDING DISCHARGE PLAN AND NEED, PATIENT LIVES AT HOME ALONE IN [facility]. IS INDEPENDENT WITH ADLS/CARE. PCP MAXIM VALDERRAMA IN [place], PATIENT CURRENTLY ON NEW OXYGEN IN HOSPITAL, PATIENT FEELS HE WILL NOT NEED O2 ON DISCHARGE WILL CONTINUE TO FOLLOW FOR NEED FOR OXYGEN ON DISCHARGE. GOAL CONTINUES TO RETURN HOME ALONE FOR ROUTINE SELF CARE. CM WILL CONTINUE TO FOLLOW FOR DISCHARGE NEEDS.
[2022-12-05] MEDS ORDERED: LANTUS SQ SCH (12:00)
--- NOTE | 2022-12-05 14:42 | NUR ---
PT DECLINED PAIN INTERVENTION AT THIS TIME
--- NOTE | 2022-12-05 16:07 | NUR ---
NO HHN TX GIVEN AT THIS TIME; ANTONETTE BENITEZ
--- NOTE | 2022-12-05 17:05 | NUR ---
CM, DISCHARGE PLANNING, OXYGEN MONITORING 1635. PATIENT ON NEW OXYGEN IN HOSPITAL. CM CHECKED O2. 93-94 PERCENT ON 2 LITER O2/NC. REMOVED OXYGEN X 10 MINUTES , O2 @ 93 PERCENT ON ROOM AIR, AMBULATED WITH PATIENT IN HALLWAY ON ROOM AIR APPROXIMATELY 40 FEET. (FROM PATIENTS ROOM 311 TO SOUTH END OF GAN AND BACK TO PATIENTS ROOM). O2 DECREASED TO 90-91 PERCENT, PATIENT SAT DOWN IN CHAIR, OXYGEN ON ROM AIR 94 PERCENT. PATIENT DENIES SHORTNESS OF BREATH. DR LÓPEZ IN TO SEE PATIENT, OXYGEN ON ROOM AIR 95 PERCENT. GOAL IS FOR PATIENT TO RETURN HOME, WITHOUT OXYGEN PENDING NO CHANGES, FOR ROUTINE SELF CARE. OXYGEN PLACED BACK ON PATIENT DUE TO FRACTURED RIBS. NO FURTHER CM NEEDS AT THIS TIME. CM WILL CONTINUE TO FOLLOW FOR DISCHARGE NEEDS.
--- NOTE | 2022-12-05 17:11 | PRM.PN ---
PROGRESS NOTE SUBJECTIVE Patient is erika some diet, blood sugars improved, He reports that his pain is increased after walking to the bathroom. OBJECTIVE Vs Per EMR, Labs in EMR H- RRR L-CTA anteriorly B/L ABD: Bs +, soft, NT, ND. O2 Sat. - 95 % RA after resting ASSESSMENT Left Rib FX - With hx of Fall Dm/HTN PLAN Continue aggressive supportive care, I/S etc. Continue excellent Medical management by the primary service. ISABEL LÓPEZ DO Dec 05, 2022 17:11
[2022-12-06] VITALS (7 sets, daily range): BP systolic 135–148; BP diastolic 68–76; PULSE 71–79; RESP 16–20; TEMP 97.5–97.6; O2SAT 94–97
[2022-12-06] MEDS: DUO 0.5-3(2.5) MG/3 ML IH SCH ×2 (02:46→08:39)
[2022-12-06] MEDS: SYNTHROID PO SCH (06:13)
[2022-12-06] MEDS: TYLENOL PO SCH (06:13)
[2022-12-06 06:27] LABS: BASOPHIL % 0.8 % (0.0-0.2); EOSINOPHIL # 0.2 10^3/uL (0.0-0.2); EOSINOPHIL % 6.1 % (0.0-5.0); LYMPHOCYTES # 0.78 10^3/uL1 (1.0-4.8); LYMPHOCYTES % 21.5 % (24.0-44.0); MEAN CORP HGB 32.6 pg (26-34); MONOCYTES # 0.3 10^3/uL (0.3-0.8); MONOCYTES % 8.3 % (5.0-12.0); NEUTROPHIL # 2.3 10^3/uL (1.8-7.7); PLATELET COUNT 190 10^3/uL (150-400); RED CELL DISTRIBUTION WIDTH 12.9 % (11.5-14.5)
[2022-12-06 06:38] LABS: CARBON DIOXIDE 29.6 mmol/L (20.0-32)
[2022-12-06] MEDS: HUMULIN R SQ SCH (07:30)
[2022-12-06] MEDS: MOTRIN PO SCH (08:36)
[2022-12-06] MEDS: PROTONIX PO SCH (08:36)
[2022-12-06] MEDS: LOVENOX SQ SCH (08:36)
[2022-12-06] MEDS: ASPIRIN EC PO SCH ×2 (08:36→08:46)
[2022-12-06] MEDS: LANTUS SQ SCH (08:39)
[2022-12-06] MEDS ORDERED: TRAM50TA PO (09:27)
[2022-12-06] MEDS ORDERED: IBUP-1856 PO (09:27)
[2022-12-06] MEDS ORDERED: PANT40TA6 PO (09:27)
--- NOTE | 2022-12-06 10:24 | PRM.PN ---
PROGRESS NOTE SUBJECTIVE Patient sitting up to chair today. He is tolerating diet. He reports his pain is improved. OBJECTIVE Vital signs per EMR Abdomen bowel sounds positive and soft nontender General patient alert oriented appropriate Skin warm And dry. ASSESSMENT History of rib fracture associated with fall Diabetes and hypertension PLAN Continue supportive care. The patient is likely able to go home later today. He is advised to follow-up with his PCP. He can follow-up with me as needed. ISABEL LÓPEZ DO Dec 06, 2022 10:24
--- NOTE | 2022-12-06 11:05 | NUR ---
DISCHARGE EDUCATION SESSION HELD WITH PT. PT DENIES PAIN AND NO APPARENT ACUTE DISTRESS NOTED. FOLLOW UP INSTRUCTIONS AND NEW/CURRENT MEDICATION EDUCATION ADDRESSED WITH PT. VERBALIZED UNDERSTANDING. PT BELONGINGS DISCHARGED WITH PT. PT LEFT UNIT AMBULATORY ESCORTED BY THIS NURSE. LEFT IN PERSONAL AUTO. RELINQUISHED CARE.
--- NOTE | 2022-12-06 11:11 | PRM.DC ---
Discharge Summary Reason for Visit: Left-sided back pain and chest pain. Hospital Course 72-year-old maleWith past medical history of diabetes mellitus, hypothyroidism, hypertension, among others that presents to the emergency department because of left-sided flank pain. Symptoms started 6 days ago at home. Patient states biju t he picked up laundry and fell backwards landing directly on the left flank. Patient was transferred to a hospital in [facility] because of multiple fractures of the left side of his ribs. States that he was treated rudely and requested discharge, AMA. Patient re-presents to this facility because of worsening left flank pain provoked by breathing. In the emergency room patient was found to be hypoxic. There is concern that patient was not inhaling deeply. CT angios of the chest shows no PE or pulmonary contusion. No pneumothorax.. Patient was found to have 4 rib fractures. Patient was found to be hypoxic. Placed on supplemental oxygen. Patient was admitted to hospital for further management. During hospital stay patient was seen by general surgeon, Dr. Ho. Respiratory therapist consulted. Incentive spirometry. Bronchodilators. Supplemental oxygen. CT chest showed multiple rib fractures and basilar atelectasis. Anesthesia consulted for nerve block.Patient continued to be in significant amount of pain. I explained to the patient that he will be in pain for the least the next few weeks because of the For rib fractures. Encouraged him to use incentive spirometry when he goes home.Will assess the patient for home oxygen needs before discharge. If his oxygen saturation is 88% ordered less on room air will need home oxygen.Patient will be discharged home. Patient to be assessed by primary care provider prior to go back to work.Medication reconciliation completed. Patient History: Diabetes mellitus G8 BROTHER G8 SISTER G8 SISTER Exam/Vitals Vital Signs Date Time Temp Pulse Resp B/P (MAP) Pulse Ox O2 Delivery O2 Flow Rate FiO2 12/06/22 10:14 Room Air 0.00 12/06/22 08:41 73 16 97 24 12/06/22 06:40 97.5 135/68 (90) General: Alert, Oriented X3, mild distress HEENT: Atraumatic, PERRLA Neck: Supple, No JVD Lungs: Clear to auscultation, Other (Dementia entry both bases) Heart: Regular rate, Normal S1, Normal S2 Abdomen: Normal bowel sounds, Soft Extremities: No clubbing, No cyanosis Skin: No significant lesion Neuro: Normal speech, Normal tone Psych/Mental Status: Mood NL Scheduled Levothyroxine Sodium (Levothyroxine Sodium), 1 TAB PO DAILY, (Reported) Metformin Hcl (Metformin Hcl), 1 TAB PO DAILY, (Reported) Pantoprazole Sodium (Pantoprazole Sodium), 40 MG PO BID Pioglitazone Hcl (Pioglitazone Hcl), 1 TAB PO DAILY24, (Reported) Tramadol Hcl (Tramadol Hcl), 50 MG PO Q6 Scheduled PRN Ibuprofen (Ibuprofen), 400 MG PO TID PRN for PAIN 4 - 6 Discontinued Medications Acetaminophen With Codeine (Tylenol With Codeine #3 Tablet), 2 EACH PO Q6 PRN for PAIN Discontinued Reason: No Longer Taking Atorvastatin 10MG (Lipitor 10MG), 1 TAB PO HS, (Reported) Discontinued Reason: No Longer Taking Doxycycline Hyclate (Doxycycline Hyclate), 100 MG PO BID Discontinued Reason: No Longer Taking Glyburide (Glyburide), 5 MG PO DAILY24 Discontinued Reason: HOLD Insulin Glargine,Hum.rec.anlog (Lantus), 10 UNIT SQ DAILY Discontinued Reason: No Longer Taking Insulin Lispro (Humalog), 0 UNIT SQ ACHS Discontinued Reason: No Longer Taking Lisinopril (Lisinopril), 10 MG PO DAILY Discontinued Reason: HOLD Vancomycin HCl in Water (Vancomycin 1,500 mg/15Ml-Water), 1.5 GM IV BID Discontinued Reason: No Longer Taking Sepsis Evaluation @ Discharge 12/06/22 07:30 Plan Problems: (1) Acute respiratory failure with hypoxia ICD Code: J96.01 - Acute respiratory failure with hypoxia SNOMED: 22756859, [id number] (2) Multiple fractures of ribs ICD Code: S22.49XA - Multiple fractures of ribs, unspecified side, initial encounter for closed fracture SNOMED: 1200474 (3) Hypertension ICD Code: I10 - Essential (primary) hypertension SNOMED: 93996394 (4) Diabetes mellitus ICD Code: E11.9 - Type 2 diabetes mellitus without complications SNOMED: 31833578 (5) Atelectasis ICD Code: J98.11 - Atelectasis SNOMED: 06010472 Plan 72-year-old maleWith past medical history of diabetes mellitus, hypothyroidism, hypertension, among others that presents to the emergency department because of left-sided flank pain. Symptoms started 6 days ago at home. Patient states that he picked up laundry and fell backwards landing directly on the left flank. Patient was transferred to a hospital in [facility] because of multiple fractures of the left side of his ribs. States that he was treated rudely and requested discharge, AMA. Patient re-presents to this facility because of worsening left flank pain provoked by breathing. In the emergency room patient was found to be hypoxic. There is concern that patient was not inhaling deeply. CT angios of the chest shows no PE or pulmonary contusion. No pneumothorax.. Patient was found to have 4 rib fractures. Patient was found to be hypoxic. Placed on supplemental oxygen. Patient was admitted to hospital for further management. During hospital stay patient was seen by general surgeon, Dr. Ho. Respiratory therapist consulted. Incentive spirometry. Bronchodilators. Supplemental oxygen. CT chest showed multiple rib fractures and basilar atelectasis. Anesthesia consulted for nerve block.Patient continued to be in significant amount of pain. I explained to the patient that he will be in pain for the least the next few weeks because of the For rib fractures. Encouraged him to use incentive spirometry when he goes home.Will assess the patient for home oxygen needs before discharge. If his oxygen saturation is 88% ordered less on room air will need home oxygen.Patient will be discharged home. Patient to be assessed by primary care provider prior to go back to work.Medication reconciliation completed. KEVIN NELSON MD Dec 06, 2022 11:11
== END 2022-12-06 11:05 | disposition home or self-care (01) | DRG 183 ==
LOC: ER 19:29 → MS 22:01 → INTOOBSV 22:01 → UNDOADMOB 22:01 → OBSVTOIN 12-04 07:00 → EDPENDDISDT 12-06 11:05 → EDPENDDISTM 12-06 11:05
PROVIDERS: ADMIT Hospitalist; ATTEND Hospitalist
PROC: 3E0R3BZ Introduction of Anesthetic Agent into Spinal Canal, Percutaneous Approach (ICD-10-PCS; principal; 2022-12-04)
DX: S22.42XA Multiple fractures of ribs, left side, initial encounter for closed fracture (principal); J96.01 Acute respiratory failure with hypoxia; J98.11 Atelectasis; E03.9 Hypothyroidism, unspecified; E11.9 Type 2 diabetes mellitus without complications; Z53.29 Procedure and treatment not carried out because of patient's decision for other reasons; I10 Essential (primary) hypertension; X50.1XXA Overexertion from prolonged static or awkward postures, initial encounter; Y93.89 Activity, other specified; Y92.89 Other specified places as the place of occurrence of the external cause; Y99.8 Other external cause status; Z83.3 Family history of diabetes mellitus
CPT/HCPCS: 36415; 36600; 71045; 71250; 80048; 80053; 82803; 82947; 82948; 83036; 83605; 84145; 84484; 85025; 85610; 85730; 87426; 87804; 94640; 99291; C9290; G0378; J1100; J1650; J1815; J1885; J2920; J2930; J3490; J7040